=== PATIENT | male | born 1995 ===

== ENCOUNTER → 2016-11-04 11:03 | Day surgery (SDC) | payer OTHER ==
[~2016-11-04 11:03] MED LIST: Buffered Lidocaine 1% SYR 3ML* 3 ML/SYR SYRINGE INTRADERM ONE; Buffered Lidocaine 1% SYR 3ML* 3 ML/SYR SYRINGE ONE; Bupivacaine 0.5% W/EPI SDV* 30 ML VIAL ONE; Dexamethasone IV* 4 MG/ML 1 ML (4 MG) IV SLOW PU ONE; Dexamethasone IV* 4 MG/ML 1 ML (4 MG) ONE; EPINEPHrine AMP 1 MG/ML ONE; HYDROcodone/ACETAMIN 5-325 MG* 1 TAB PO PRN; Ketorolac INJ* 30 MG/ML 1 ML VIAL ONE; Lidocaine 2% MPF* 2 ML VIAL ONE; Ondansetron INJ* 2 MG/ML VIAL ONE; PROCHLORPERAZINE INJ 5 MG/ML 2 ML VIAL IV PRN; Propofol* 10 MG/ML 20 ML BTL IV PUSH ONE; ceFAZolin 2 GM PREMIX (*) 2 GM/50 ML BAG IVPB ONE; fentaNYL* 50 MCG/ML 2 ML VIAL (100 MCG VIAL) IV PRN; fentaNYL* 50 MCG/ML 2 ML VIAL (100 MCG VIAL) ONE
[2016-11-04 17:15] VITALS: BP 134/89
--- NOTE | 2016-11-05 11:35 | OP ---
OPERATIVE REPORT: DATE OF OPERATION: 11/04/16 DATE OF : 89 SURGEON: Keenan Casey MD PLANNING FEEDER: WILBUR Madden ANESTHESIA: General anesthesia, local anesthesia. PRE-OP DIAGNOSIS: Right knee lateral meniscus tear. POST-OP DIAGNOSIS: Right knee lateral meniscus tear. OPERATIVE PROCEDURE: 1. Right knee arthroscopic partial lateral meniscectomy. 2. Right knee arthroscopic synovectomy. ANTIBIOSIS: 2 g Ancef IV. IV FLUIDS: See anesthesia note. TOURNIQUET TIME: 36 minutes at 300 mmHg. EBL: Minimal. SPECIMEN: None. IMPLANTS: None. COMPLICATIONS: None. INDICATIONS: The patient is a 21-year-old man from [facility], a [employer] in [employer], who in jured his right knee on June 24, 2016, with a twisting injury with playing [employer]. Then he injured again on July 24, 2016, with twisting while playing a different sport. The patient devel oped pain and swelling in his knee and that prompted him after that second injury to see me in the o ffice. MRI from an outside hospital demonstrated a high grade partial thickness radial tear in the b elva of the lateral meniscus. The patient presented to me with this MRI. I recommended surgery but the patient opted for nonoperative management. At that time, he had pain laterally with full flexio n, lateral joint line tenderness and positive lateral Vish's test. The patient opted for nonope rative treatment with naproxen and physical therapy. He improved but then he missed step, slipping on some ice on August 23, 2016. He developed more swelling and pain about the lateral knee. The patient presented to me in the office again with a positive Vish's, lateral joint line tendernes s to palpation. He had mild increased laxity with ACL stress testing, so I obtained a second MRI ju to make sure he would not sustain an additional intraarticular injury. New MRI demonstrated some advancement of his lateral meniscus tear to near full thickness radial shaped tear in the body of t he lateral meniscus. The patient opted for surgical management. DESCRIPTION OF PROCEDURE: Preoperative written consent. Operative extremity was marked in the preo perative holding. The patient was taken back to the operating room and placed supine on the operati ng room table. Sedated and intubated. Proximal right thigh tourniquet was placed but not yet elevat ed. Circumferential right distal thigh ritchie was put into place. Bed was elevated, foot of the be d was dropped. The right lower extremity was prepped and draped. Surgical time-out was performed. Right knee anterolateral knee arthroscopy portal was created using standard technique. Diagnostic arthroscopy was commenced. Patellofemoral compartment showed no cartilage injury. Medial compartme nt showed no articular cartilage or meniscus injury. ACL was intact. There was some synovitis ante riorly. Lateral compartment showed no articular cartilage injury. There was clearly a meniscus tea r with a radial component about the mid body and just posterior to that there clearly had been a sina tical tear in the white-white or white-red part of the meniscus that had attempted and failed to hea l. Anteromedial knee arthroscopy portal was established under direct visualization using standard t echnique. The torn meniscus and part of meniscus that had failed to heal were debrided back to a st able rim using arthroscopic biters as well as an arthroscopic curved shaver. I worked through each of the portals. Stability for remaining rim was confirmed with probing. The patient had remaining still a nice rim of meniscus circumferentially. Instruments and fluid removed the knee. Skin incis ions were closed with [id number] stitches using nylon 4.0 suture. Local anesthesia was infused into the subcutaneous tissue. Xeroform, 4x4s, ABD, sterile Webril, nonsterile Webril, Zach bandages . Tourniquet was elevated and patient was awakened and extubated and brought to the PACU. DISPOSITION: The patient received Ancef, Percocet, aspirin. We will start physical therapy this co brodie week and will follow up in 10 to 14 days postoperative. [id number]/[facility] #: [id number]
== END | disposition home or self-care (01) ==
LOC: OR 11:03
PROVIDERS: ATTEND Orthopaedic Surgery
DX: S83.281A Other tear of lateral meniscus, current injury, right knee, initial encounter (principal); X50.0XXA Overexertion from strenuous movement or load, initial encounter; Y93.59 Activity, other involving other sports and athletics played individually; Y92.318 Other athletic court as the place of occurrence of the external cause
CPT/HCPCS: J0171; J0690; J1100; J1885; J2405; J2704; J3010